=== PATIENT | female | born 1990 | race Caucasian/White ===

== ENCOUNTER 2016-06-29 08:44 | Emergency (ER) | payer OTHER ==
[2016-06-29 09:01] VITALS: BP 134/88
--- NOTE | 2016-06-29 09:08 | UC ---
Allergic Reaction HPI - HPI Summary HPI Summary: has been on PCN for 5 days after a dental extraction, last night developed hives and itching spreading across face, ear arms and thighs no respiratory issues, no throat pain - History of Current Complaint Chief Complaint: UCAllergicReaction Stated Complaint: RX REACTION-RASH Time Seen by Provider: 06/29/16 09:06 Hx Obtained From: Patient Hx Last Menstrual Period: 06/24/15 ?: No Onset/Duration: Sudden Onset, Lasting Hours, Still Present Severity Initially: Mild Severity Currently: Moderate Location: Diffuse Character: Pruritus, Hives Alleviating Factor(s): Antihistamines - benadryl with some relief in the night Associated Signs And Symptoms: Positive: Rash - Allergies/Home Medications Allergies/Adverse Reactions: Allergies Allergy/AdvReac Type Severity Reaction Status Date / Time Penicillins Allergy Rash Verified 06/29/16 08:54 PMH/Surg Hx/FS Hx/Imm Hx Previously Healthy: No Cardiovascular History Of: Reports: Hypertension - pre-eclampsia - Surgical History Surgical History: Yes Surgery Procedure, Year, and Place: appe 2004. tonsillectomy 2006. x3 - Family History Family History: denies cardio vascular issues in family lineage - Social History Occupation: Unemployed Lives: With Family Alcohol Use: None Substance Use Type: None Smoking Status (MU): Never Smoked Tobacco Have You Smoked in the Last Year: No Review of Systems Constitutional: Negative Skin: Rash Eyes: Negative ENT: Negative Respiratory: Negative Cardiovascular: Negative Gastrointestinal: Negative Genitourinary: Negative Motor: Negative Neurovascular: Negative Musculoskeletal: Negative Neurological: Negative Psychological: Negative All Other Systems Reviewed And Are Negative: Yes Physical Exam Triage Information Reviewed: Yes Appearance: Well-Appearing, No Pain Distress, Well-Nourished Vital Signs: Initial Vital Signs Temp 100.0 F 06/29/16 08:56 Pulse 99 06/29/16 08:56 Resp 16 06/29/16 08:56 BP 134/88 06/29/16 08:56 Pulse Ox 100 06/29/16 08:56 Vital Signs Reviewed: Yes Eye Exam: Normal Eyes: Positive: Conjunctiva Clear ENT Exam: Normal ENT: Positive: Normal ENT inspection, Hearing grossly normal, Pharynx normal, TMs normal. Negative: Nasal congestion, Nasal drainage, Tonsillar swelling, Tonsillar exudate, Trismus, Muffled/hoarse voice Dental Exam: Normal Neck exam: Normal Neck: Positive: Supple, Nontender, No Lymphadenopathy Respiratory Exam: Normal Respiratory: Positive: Chest non-tender, Lungs clear, Normal breath sounds, No respiratory distress, No accessory muscle use Cardiovascular Exam: Normal Cardiovascular: Positive: RRR, No Murmur, Pulses Normal, Brisk Capillary Refill Musculoskeletal Exam: Normal Musculoskeletal: Positive: Strength Intact, ROM Intact, No Edema Neurological Exam: Normal Neurological: Positive: Alert, Muscle Tone Normal Psychological Exam: Normal Skin Exam: Other Skin: Positive: rashes Re-Evaluation - Re-Evaluation First Eval Change: Improved - rash improving less itchy---feeling better Allergic Reaction Course/Dx - Course Course Of Treatment: prednisone, pepcid, benadryl, stop penicillin, follow with pcp re-check prn - Differential Dx/Diagnosis Differential Diagnosis/HQI/PQRI: Anaphylaxis, Angioedema, Local Allergic Reaction, Urticaria Provider Diagnoses: Systemic allergic reaction to Penicillin Discharge - Discharge Plan Condition: Stable Disposition: HOME Prescriptions: Famotidine TAB* [Pepcid TAB*] 20 mg PO BID #10 tab diPHENhydraMINE PO* [Benadryl PO*] 50 mg PO Q6H PRN #20 cap PRN Reason: Itching predniSONE TAB* [Deltasone TAB*] 40 mg PO DAILY #10 tab Patient Education Materials: Prednisone (By mouth), Diphenhydramine (By mouth) , Antibiotic Medication Allergy (ED) Referrals: [facility] [Outside] - If Needed No Primary Care Phys,NOPCP [Primary Care Provider] -
[2016-06-29] MEDS ORDERED: Famotidine TAB* 20 MG PO ONE (09:18)
[2016-06-29] MEDS ORDERED: predniSONE TAB* 20 MG PO ONE (09:18)
== END 2016-06-29 09:56 | disposition home or self-care (01) ==
LOC: UCEAST 08:44
DX: L27.0 Generalized skin eruption due to drugs and medicaments taken internally (principal); T36.0X5A Adverse effect of penicillins, initial encounter
CPT/HCPCS: 99212; A9270-GY; G0463; J7512

== ENCOUNTER 2016-06-30 11:19 | Emergency (ER) | payer OTHER ==
[2016-06-30 12:19] VITALS: BP 137/85
[2016-06-30] MEDS ORDERED: predniSONE TAB* 20 MG PO ONE (12:31)
--- NOTE | 2016-06-30 12:31 | UC ---
Allergic Reaction HPI - HPI Summary HPI Summary: Pt dx with allergy to PCN yesterday; had taken PCN for 5-6 days for dental infection. Yesterday rx diphenhydramine 50mg QID, prednisone 40mg daily x 5 days , and pepcid 20mg BID. Today hives are worsening, pt is very uncomfortable. Denies abd pain, chest pain, vomiting, difficulty breathing, or dizziness. - History of Current Complaint Chief Complaint: UCAllergicReaction Stated Complaint: POSSIBLE ALLERGRIC REACTION Time Seen by Provider: 06/30/16 12:19 Hx Obtained From: Patient Hx Last Menstrual Period: 06/29/16 ?: No Onset/Duration: Gradual Onset, Lasting Days Severity Initially: Mild Severity Currently: Moderate Character: Hives Aggrevating Factor(s): Heat Alleviating Factor(s): Antihistamines Associated Signs And Symptoms: Positive: Rash - Related Hx Possible Reaction To: Medications - Allergies/Home Medications Allergies/Adverse Reactions: Allergies Allergy/AdvReac Type Severity Reaction Status Date / Time Penicillins Allergy Rash Verified 06/29/16 08:54 PMH/Surg Hx/FS Hx/Imm Hx Cardiovascular History Of: Reports: Hypertension - pre-eclampsia - Surgical History Surgical History: Yes Surgery Procedure, Year, and Place: appe 2004. tonsillectomy 2006. x3 - Family History Known Family History: Negative: Cardiac Disease Family History: denies cardio vascular issues in family lineage - Social History Alcohol Use: None Substance Use Type: None Smoking Status (MU): Never Smoked Tobacco Have You Smoked in the Last Year: No Review of Systems Constitutional: Negative Skin: Rash Eyes: Negative ENT: Negative Respiratory: Negative Cardiovascular: Negative Gastrointestinal: Negative Genitourinary: Negative Motor: Negative Neurovascular: Negative Musculoskeletal: Negative Neurological: Negative Psychological: Negative All Other Systems Reviewed And Are Negative: Yes Physical Exam Triage Information Reviewed: Yes Appearance: Well-Appearing, No Pain Distress, Obese Vital Signs: Initial Vital Signs Temp 98.7 F 06/30/16 11:52 Pulse 89 06/30/16 11:52 Resp 18 06/30/16 11:52 BP 137/85 06/30/16 11:52 Pulse Ox 100 06/30/16 11:52 Vital Signs Reviewed: Yes Eye Exam: Normal Eyes: Positive: Conjunctiva Clear ENT Exam: Normal ENT: Positive: Normal ENT inspection, Hearing grossly normal, Pharynx normal, TMs normal Dental Exam: Normal Neck exam: Normal Neck: Positive: Supple, Nontender, No Lymphadenopathy Respiratory Exam: Normal Respiratory: Positive: Chest non-tender, Lungs clear, Normal breath sounds, No respiratory distress, No accessory muscle use Cardiovascular Exam: Normal Cardiovascular: Positive: RRR, No Murmur Musculoskeletal Exam: Normal Neurological Exam: Normal Psychological Exam: Normal Skin: Positive: rashes - urticaria on arms, face, upper back Allergic Reaction Course/Dx - Differential Dx/Diagnosis Provider Diagnoses: urticaria. medication allergy Discharge - Discharge Plan Condition: Stable Disposition: HOME Patient Education Materials: Urticaria (ED), Antibiotic Medication Allergy (ED) Referrals: No Primary Care Phys,NOPCP [Primary Care Provider] - Additional Instructions: As we discussed, you should continue taking your diphenhydramine (benadryl) and pepcid as prescribed. We have doubled your dose of prednisone today; you should take 60mg prednisone (3 pills) once daily for tomorrow and , then take the last two pills on Wednesday. If you continue to have growing symptoms, please return here, because we have to consider the possibility that you might be reacting to something unrelated to the penicillin.
== END 2016-06-30 13:41 | disposition home or self-care (01) ==
LOC: UCEAST 11:19
DX: L50.0 Allergic urticaria (principal); T36.0X5A Adverse effect of penicillins, initial encounter
CPT/HCPCS: 99201; G0463; J7512

== ENCOUNTER 2017-01-29 15:20 | Emergency (ER) | payer OTHER ==
--- NOTE | 2017-01-29 15:35 | UC ---
Lower Extremity/Ankle HPI - HPI Summary HPI Summary: 26 YEARS OLD PRESENTS WITH COMPLAINS OF LEFT SANTOS AND ANKLE PAIN SECONDARY TO A FALL. - History of Current Complaint Stated Complaint: S/P FALL LEFT ANKLE/SANTOS Time Seen by Provider: 01/29/17 15:35 Hx Obtained From: Patient Hx Last Menstrual Period: 06/29/16 Onset/Duration: Sudden Onset Severity Initially: Moderate Severity Currently: Moderate Pain Scale Used: 0-10 Numeric - 6 Aggravating Factor(s): Standing Alleviating Factor(s): Rest, Elevation - Allergies/Home Medications Allergies/Adverse Reactions: Allergies Allergy/AdvReac Type Severity Reaction Status Date / Time Penicillins Allergy Rash Verified 01/29/17 15:50 PMH/Surg Hx/FS Hx/Imm Hx Previously Healthy: Yes - Surgical History Surgical History: Yes Surgery Procedure, Year, and Place: appe 2004. tonsillectomy 2005. x3 - Family History Known Family History: Negative: Cardiac Disease Family History: denies cardio vascular issues in family lineage - Social History Alcohol Use: None Substance Use Type: None Smoking Status (MU): Never Smoked Tobacco Have You Smoked in the Last Year: No Review of Systems Constitutional: Negative Skin: Other - LEFT SANTOS ABRASION Eyes: Negative ENT: Negative Respiratory: Negative Cardiovascular: Negative Gastrointestinal: Negative Genitourinary: Negative Motor: Negative Neurovascular: Negative Musculoskeletal: Other: - LEFT ANKLE/SANTOS PAIN Neurological: Negative Psychological: Negative All Other Systems Reviewed And Are Negative: Yes Physical Exam Triage Information Reviewed: Yes Eye Exam: Normal ENT Exam: Normal Dental Exam: Normal Neck exam: Normal Neck: Positive: 1 Respiratory Exam: Normal Cardiovascular Exam: Normal Abdominal Exam: Normal Musculoskeletal Exam: Normal Musculoskeletal: Positive: Other: - LEFT ANKLE/SANTOS PAIN Neurological Exam: Normal Psychological Exam: Normal Skin Exam: Normal Skin: Positive: Other - LEFT SANTOS ABRASION Lower Extremity Course/Dx - Differential Dx/Diagnosis Provider Diagnoses: LEFT ANKLE PAIN/SWELLING. LEFT SANTOS SKIN ABRASION Discharge - Discharge Plan Condition: Stable Disposition: HOME Prescriptions: DOXYcycline CAP(*) [DOXYcycline 100MG CAP(*)] 100 mg PO BID #20 cap Meloxicam [Mobic] 7.5 mg PO BID PC #30 tab Patient Education Materials: Ankle Sprain (ED), Leg Pain (ED) Referrals: Von Fournier MD [Medical Doctor] - No Primary Care Phys,NOPCP [Primary Care Provider] -
[2017-01-29 15:57] VITALS: BP 122/79
--- NOTE | 2017-01-29 16:29 | RAD ---
INDICATION: Left ankle injury. TECHNIQUE: 3 views of the left ankle were obtained. FINDINGS: The bones are in normal alignment. No fracture is seen. Joint spaces appear maintained. IMPRESSION: SOFT TISSUE SWELLING, NO FRACTURE IS SEEN.
--- NOTE | 2017-01-29 16:31 | RAD ---
INDICATION: Left foot injury. TECHNIQUE: 3 views of the left foot were obtained. FINDINGS: There is soft tissue swelling present along the dorsal aspect of the foot. No fracture is seen. Joint spaces appear maintained. IMPRESSION: SOFT TISSUE SWELLING, NO FRACTURE IS SEEN.
--- NOTE | 2017-01-29 16:32 | RAD ---
INDICATION: Left lower leg injury. TECHNIQUE: 2 views of the left lower leg were obtained. FINDINGS: The bones are normal alignment. No fracture is seen. IMPRESSION: NO EVIDENCE OF FRACTURE.
== END 2017-01-29 16:47 | disposition home or self-care (01) ==
LOC: UCCORT 15:20
DX: S80.812A Abrasion, left lower leg, initial encounter (principal); W19.XXXA Unspecified fall, initial encounter; Y93.9 Activity, unspecified; Y92.9 Unspecified place or not applicable; M25.572 Pain in left ankle and joints of left foot; M25.472 Effusion, left ankle; Z88.0 Allergy status to penicillin
CPT/HCPCS: 99212; G0463